=== PATIENT | female | born 1985 | race Caucasian/White ===

== ENCOUNTER 2019-01-31 19:39 | Emergency (ER) | payer OTHER ==
[~2019-01-31] VITALS: Ht 154.9 cm; Wt 68.9 kg
[2019-01-31 19:42] VITALS: Ht 154.9 cm; Wt 68.9 kg
[2019-01-31 20:33] VITALS: BP 116/71
== END 2019-01-31 20:33 | disposition home or self-care (01) ==
LOC: ED 19:39
DX: F41.9 Anxiety disorder, unspecified (principal); F41.0 Panic disorder [episodic paroxysmal anxiety]